=== PATIENT | male | born 1975 | race Caucasian/White ===

== ENCOUNTER 2020-03-28 16:00 | Outpatient (REF) | payer MEDICAID, OTHER, SELFPAY ==
--- NOTE | 2020-03-28 16:13 | XR_ITS ---
EXAMINATION: XR KNEE, RIGHT XR KNEE, LEFT CLINICAL INFORMATION: Pain. COMPARISON: Left knee radiographs dated 07/28/2018. TECHNIQUE: AP, tunnel, lateral, and sunrise views of the right and left knee. FINDINGS: RIGHT KNEE: Mild medial compartment joint space narrowing. Tiny medial and patellofemoral compartment marginal osteophytes. No osseous erosion. No fracture or dislocation. No abnormal soft tissue calcification. LEFT KNEE: Mild medial compartment joint space narrowing. Small medial and patellofemoral compartment marginal osteophytes. Mild patellofemoral subchondral cystic change. No fracture or dislocation. No significant joint effusion. No abnormal soft tissue calcification. XR/XR knee LT 4V IMPRESSION: Right knee: Mild medial and patellofemoral compartment osteoarthritis. Left knee: Mild medial and patellofemoral compartment osteoarthritis, slightly progressed when compared to the prior radiographs.
--- NOTE | 2020-03-28 16:13 | XR_ITS ---
EXAMINATION: XR KNEE, RIGHT XR KNEE, LEFT CLINICAL INFORMATION: Pain. COMPARISON: Left knee radiographs dated 07/28/2018. TECHNIQUE: AP, tunnel, lateral, and sunrise views of the right and left knee. FINDINGS: RIGHT KNEE: Mild medial compartment joint space narrowing. Tiny medial and patellofemoral compartment marginal osteophytes. No osseous erosion. No fracture or dislocation. No abnormal soft tissue calcification. LEFT KNEE: Mild medial compartment joint space narrowing. Small medial and patellofemoral compartment marginal osteophytes. Mild patellofemoral subchondral cystic change. No fracture or dislocation. No significant joint effusion. No abnormal soft tissue calcification. XR/XR knee RT 4V IMPRESSION: Right knee: Mild medial and patellofemoral compartment osteoarthritis. Left knee: Mild medial and patellofemoral compartment osteoarthritis, slightly progressed when compared to the prior radiographs.
== END 2020-03-28 16:01 | disposition home or self-care (01) ==
LOC: HO.XRAY 16:00
PROVIDERS: PCP Nurse Practitioner Family; Visit Provider Nurse Practitioner Family
DX: M17.12 Unilateral primary osteoarthritis, left knee (principal); M25.561 Pain in right knee
CPT/HCPCS: 73564

== ENCOUNTER 2020-10-18 12:34 | Outpatient (REF) | payer MEDICAID, OTHER, SELFPAY ==
--- NOTE | ~2020-10-18 | XR_ITS ---
EXAMINATION: XR KNEE, LEFT CLINICAL INFORMATION: Left knee pain. COMPARISON: Left knee radiographs dated 03/28/2020 TECHNIQUE: Four views of the left knee. FINDINGS: Mild medial compartment joint space narrowing. Tricompartmental marginal osteophytes. No osseous erosion. No fracture or dislocation. Moderate joint effusion. No abnormal soft tissue calcification. XR/XR knee LT 4V IMPRESSION: Tricompartmental osteoarthritis, not significantly changed. Moderate joint effusion, new when compared to the prior examination.
== END 2020-10-18 12:35 | disposition home or self-care (01) ==
LOC: HO.XRAY 12:34
PROVIDERS: Absent Provider Registered Nurse Community Health; PCP Registered Nurse Community Health; Visit Provider Nurse Practitioner Family
DX: M25.562 Pain in left knee (principal)
CPT/HCPCS: 73564

== ENCOUNTER 2022-04-25 08:34 | Outpatient (REF) | payer MEDICAID, OTHER, SELFPAY ==
--- NOTE | ~2022-04-25 | US_ITS ---
EXAMINATION: US ABDOMEN COMPLETE CLINICAL INFORMATION: Elevated liver enzymes. COMPARISON: None TECHNIQUE: Real-imaging of the abdominal viscera. FINDINGS: PANCREAS: Normal. ABDOMINAL AORTA: The proximal, mid, and distal segments are normal in caliber. INFERIOR VENA CAVA: Visualized portions are normal. LIVER: The liver is normal in size. The liver contour is normal. There is mild increased liver echogenicity. No focal hepatic lesion. There is no intrahepatic biliary duct dilatation seen. GALLBLADDER: Normal. The gallbladder is physiologically distended without evidence of stones, sludge, polyps, wall thickening or pericholecystic fluid. COMMON BILE DUCT: Normal in caliber measuring 0.2 cm in diameter. RIGHT KIDNEY: Normal. No hydronephrosis. No renal calculi or focal parenchymal lesions. The kidney measures 11.6 cm in maximum dimension. LEFT KIDNEY: There is an anechoic cyst in midpole measuring 0.9 x 0.9 x 0.9 cm. No hydronephrosis or renal calculi. The kidney measures 12.1 cm in maximum dimension. SPLEEN: Normal. The spleen measures 11.3 cm in maximum dimension. FREE FLUID: None. US/US abdomen complete IMPRESSION: 1. Mild increased liver echogenicity. No focal lesion seen. 2. Small anechoic cyst midpole left kidney. 3. Rest of the abdominal ultrasound is unremarkable.
== END 2022-04-25 08:35 | disposition home or self-care (01) ==
LOC: HO.US 08:34
PROVIDERS: PCP Registered Nurse; Visit Provider Registered Nurse
DX: R74.8 Abnormal levels of other serum enzymes (principal)
CPT/HCPCS: 76700

== ENCOUNTER 2022-11-28 09:23 | Outpatient (REF) | payer MEDICAID, OTHER, SELFPAY | END 2022-11-28 09:24 | disposition home or self-care (01) | LOC: HO.HHCL 09:23 | PROVIDERS: Visit Provider Registered Nurse | DX: E11.69 Type 2 diabetes mellitus with other specified complication (principal); E66.9 Obesity, unspecified | CPT/HCPCS: 36415; 80053; 80061; 82043; 82570 ==

== ENCOUNTER 2023-02-05 09:25 | Outpatient (REF) | payer MEDICAID, OTHER, SELFPAY ==
[2023-02-05 11:33] LABS: MANUAL DIFF FLAG NO
[2023-02-05 11:45] LABS: Basophils Percent Auto 0.5 % (0-2); Eosinophils Absolute Auto 0.1 X10*3/uL (0.0-0.4); Eosinophils Percent Auto 1.4 % (0-4); Hematocrit 43.9 % (42.0-52.0); Hemoglobin 14.5 g/dl (14.0-18.0); Imm Gran Abs Auto 0.01 X10*3/uL (0.00-0.03); Imm Gran Pct Auto 0.2 % (0.0-0.4); Lymphocytes Absolute Auto 2.9 X10*3/uL (1.2-4.9); Lymphocytes Percent Auto 45.2 % (20-40); Mean Corpuscular Hemoglobin 27.7 pg (27.0-33.0); Mean Corpuscular Volume 83.9 fL (80.0-98.0); Mean Platelet Volume 10.9 fL (9.4-12.4); Monocytes Absolute Auto 0.5 X10*3/uL (0.1-1.2); Monocytes Percent Auto 8.1 % (2-11); Neutrophils Absolute Auto 2.8 x10*3/uL (2.0-8.3); Neutrophils Percent Auto 44.6 % (45-73); Platelet Count 206 X10*3/uL (160-400); Red Blood Count 5.23 X10*6/uL (4.60-5.80); Red Cell Distribution Width 13.5 % (11.0-16.0); White Blood Count 6.3 X10*3/uL (4.8-10.8)
[2023-02-05 12:05] LABS: Alanine Aminotransferase 95 U/L (0-40); Albumin Level 4.5 g/dL (3.5-5.0); Alkaline Phosphatase 72 U/L (39-117); Aspartate Amino Transferase 74 U/L (5-37); Bilirubin Direct 0.2 mg/dL (0.0-0.5); Bilirubin Total 0.5 mg/dL (0.0-1.0); Total Protein 7.7 g/dL (6.5-8.0)
[2023-02-05 12:34] LABS: HBsAGNum1 0.23 S/CO (0.00-0.99); Hepatitis A Antibody IgM 0.28 Index (0-0.79); Hepatitis B Core Antibody Nonreactive (Nonreactive); Hepatitis B Surface Antigen Negative (Negative); ~HepC Num1 0.11 S/CO (0.00-0.79); ~Hepatitis A Antibody IgM Nonreactive (Nonreactive); ~Hepatitis B Surface Antibody REACTIVE (Nonreactive); ~Hepatitis C Antibody Nonreactive (Nonreactive)
== END 2023-02-05 09:26 | disposition home or self-care (01) ==
LOC: HO.HHCL 09:25
PROVIDERS: Visit Provider Registered Nurse
DX: R74.8 Abnormal levels of other serum enzymes (principal)
CPT/HCPCS: 36415; 80076; 85025; 86704; 86706; 86709; 86803; 87340

== ENCOUNTER 2023-03-06 18:17 | Emergency (ER) | payer MEDICAID, OTHER, SELFPAY ==
[2023-03-06 18:21] VITALS: BP 151/95; PULSE 103; RESP 20; TEMP 36.2; O2SAT 98; BMI 38.1
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
--- NOTE | 2023-03-06 18:29 | ECG_ITS ---
Test Reason : SYNCOPE Blood Pressure : / mmHG Vent. Rate : 093 BPM Atrial Rate : 093 BPM P-R Int : 170 ms QRS Dur : 094 ms QT Int : 342 ms P-R-T Axes : 059 -25 021 degrees QTc Int : 425 ms Normal sinus rhythm Normal ECG When compared with ECG of 07-JUL-2017 02:59, No significant change was found Referred By: Mara Candelaria Electronically Signed By:ЮЛИЯ ROMERO MD
[2023-03-06 18:44] LABS: MANUAL DIFF FLAG NO
[2023-03-06 18:45] LABS: Basophils Percent Auto 0.3 % (0-2); Eosinophils Absolute Auto 0.1 X10*3/uL (0.0-0.4); Eosinophils Percent Auto 1.4 % (0-4); Hematocrit 40.5 % (42.0-52.0); Hemoglobin 13.3 g/dl (14.0-18.0); Imm Gran Abs Auto 0.02 X10*3/uL (0.00-0.03); Imm Gran Pct Auto 0.3 % (0.0-0.4); Lymphocytes Percent Auto 42.3 % (20-40); Mean Corpuscular HGB Conc 32.8 g/dl (31.0-36.0); Mean Corpuscular Hemoglobin 27.6 pg (27.0-33.0); Mean Platelet Volume 10.1 fL (9.4-12.4); Monocytes Absolute Auto 0.7 X10*3/uL (0.1-1.2); Monocytes Percent Auto 9.4 % (2-11); Neutrophils Absolute Auto 3.3 x10*3/uL (2.0-8.3); Neutrophils Percent Auto 46.3 % (45-73); Platelet Count 181 X10*3/uL (160-400); Red Blood Count 4.82 X10*6/uL (4.60-5.80); Red Cell Distribution Width 14.2 % (11.0-16.0); White Blood Count 7.1 X10*3/uL (4.8-10.8)
[2023-03-06 18:59] LABS: Alanine Aminotransferase 102 U/L (0-40); Albumin Level 4.2 g/dL (3.5-5.0); Alkaline Phosphatase 95 U/L (39-117); Anion Gap 16 (12-20); Aspartate Amino Transferase 57 U/L (5-37); Bilirubin Total 0.2 mg/dL (0.0-1.0); Blood Urea Nitrogen 11 mg/dL (9-16); Carbon Dioxide 21 mmol/L (22-29); Chloride 105 mmol/L (96-108); Creatinine Clr Calc Pharmacy 107.1; Estimated Glomerular Filt Rate > 60; Glucose Random 203 mg/dL (60-115); Potassium 3.7 mmol/L (3.3-5.1); Sodium 138 mmol/L (135-145); Total Protein 7.4 g/dL (6.5-8.0)
[2023-03-06 19:07] LABS: Troponin-I High Sensitivity < 2.7 ng/L (<3.5-35.0)
[2023-03-06 21:06] VITALS: BP 143/97; PULSE 86; RESP 20; TEMP 36.4; O2SAT 98
== END 2023-03-06 21:15 | disposition home or self-care (01) ==
LOC: HO.ED 21:14
PROVIDERS: Nurse Practitioner Family; Emergency Provider Student in an Organized Health Care Education/Training Program
DX: R55 Syncope and collapse (principal)
CPT/HCPCS: 36415; 80053; 84484; 85025; 93005; 99282; 99283

== ENCOUNTER → 2023-03-06 18:29 | Outpatient (BNV) | payer SELFPAY | PROVIDERS: Emergency Provider Student in an Organized Health Care Education/Training Program; Visit Provider Internal Medicine Cardiovascular Disease | DX: R55 Syncope and collapse (principal) | CPT/HCPCS: 93010 ==

== ENCOUNTER 2023-04-10 08:54 | Outpatient (REF) | payer MEDICAID, OTHER, SELFPAY ==
[2023-04-10 11:29] LABS: MANUAL DIFF FLAG NO
[2023-04-10 11:48] LABS: Basophils Percent Auto 0.5 % (0-2); Eosinophils Absolute Auto 0.1 X10*3/uL (0.0-0.4); Eosinophils Percent Auto 1.5 % (0-4); Hematocrit 44.2 % (42.0-52.0); Hemoglobin 14.3 g/dl (14.0-18.0); Imm Gran Abs Auto 0.02 X10*3/uL (0.00-0.03); Imm Gran Pct Auto 0.3 % (0.0-0.4); Lymphocytes Absolute Auto 3.2 X10*3/uL (1.2-4.9); Lymphocytes Percent Auto 51.6 % (20-40); Mean Corpuscular HGB Conc 32.4 g/dl (31.0-36.0); Mean Corpuscular Hemoglobin 27.1 pg (27.0-33.0); Mean Corpuscular Volume 83.9 fL (80.0-98.0); Mean Platelet Volume 10.8 fL (9.4-12.4); Monocytes Absolute Auto 0.5 X10*3/uL (0.1-1.2); Monocytes Percent Auto 8.8 % (2-11); Neutrophils Absolute Auto 2.3 x10*3/uL (2.0-8.3); Neutrophils Percent Auto 37.3 % (45-73); Platelet Count 227 X10*3/uL (160-400); Red Blood Count 5.27 X10*6/uL (4.60-5.80); Red Cell Distribution Width 13.6 % (11.0-16.0); White Blood Count 6.1 X10*3/uL (4.8-10.8)
[2023-04-10 12:03] LABS: Alanine Aminotransferase 107 U/L (0-40); Albumin Level 4.3 g/dL (3.5-5.0); Alkaline Phosphatase 63 U/L (39-117); Aspartate Amino Transferase 59 U/L (5-37); Bilirubin Direct 0.2 mg/dL (0.0-0.5); Bilirubin Total 0.4 mg/dL (0.0-1.0); Cholesterol 231 mg/dL (<200); HDL Cholesterol 46 mg/dL (>40); LDL Cholesterol Calculated 134 mg/dL (<100); Total Protein 7.5 g/dL (6.5-8.0); Triglycerides 256 mg/dL (<150)
[2023-04-10 12:16] LABS: HBc Num1 0.17 S/CO (0.00-0.79); HBsAGNum1 0.56 S/CO (0.00-0.99); Hepatitis A Antibody IgM 0.28 Index (0-0.79); Hepatitis B Core Antibody Nonreactive (Nonreactive); Hepatitis B Surface Antigen Negative (Negative); ~HepC Num1 0.12 S/CO (0.00-0.79); ~Hepatitis A Antibody IgM Nonreactive (Nonreactive); ~Hepatitis B Surface Antibody REACTIVE (Nonreactive); ~Hepatitis C Antibody Nonreactive (Nonreactive)
== END 2023-04-10 08:55 | disposition home or self-care (01) ==
LOC: HO.HHCL 08:54
PROVIDERS: Visit Provider Registered Nurse
DX: R74.8 Abnormal levels of other serum enzymes (principal)
CPT/HCPCS: 36415; 80061; 80076; 85025; 86704; 86706; 86709; 86803; 87340

== ENCOUNTER 2023-10-03 08:21 | Outpatient (REF) | payer MEDICAID, OTHER, SELFPAY ==
[2023-10-03 11:23] LABS: Alanine Aminotransferase 119 U/L (0-40); Albumin Level 4.4 g/dL (3.5-5.0); Alkaline Phosphatase 63 U/L (39-117); Aspartate Amino Transferase 88 U/L (5-37); Bilirubin Direct 0.1 mg/dL (0.0-0.5); Bilirubin Total 0.3 mg/dL (0.0-1.0); Cholesterol 166 mg/dL (<200); HDL Cholesterol 50 mg/dL (>40); LDL Cholesterol Calculated 65 mg/dL (<100); Total Protein 7.4 g/dL (6.5-8.0); Triglycerides 255 mg/dL (<150)
== END 2023-10-03 08:22 | disposition home or self-care (01) ==
LOC: HO.HHCL 08:21
PROVIDERS: Visit Provider Registered Nurse
DX: E78.2 Mixed hyperlipidemia (principal); R74.8 Abnormal levels of other serum enzymes
CPT/HCPCS: 36415; 80061; 80076

== ENCOUNTER 2025-02-10 12:11 | Outpatient (REF) | payer MEDICAID, OTHER, SELFPAY ==
--- OUTSIDE RECORDS SUMMARY | 2025-02-07 14:00 | XMS_ITS | Encounter Summary ---
Author Organization [employer] Address [address] [place] [address] [address] [place] [address] Care Team Providers Care Mr Teacher Name Role Phone [facility] Primary Care Provider [phone] Reason for Visit * Reason Comments Follow-up Encounter Details Date Type Department Care Team ([facility] Contact Info) Description 02/07/2025 2:00 PM EST Office Visit [facility] [address] [place] [address] Geeta Ann FNP [address] [place] [address] Elevated bilirubin Social History Tobacco Use Types Packs/Day Years Used Date Smoking Tobacco: Never Smokeless Tobacco: Never Tobacco Cessation:Counseling Given: Not Answered Alcohol Use Standard Drinks/Week Comments Yes 2 (1 standard drink = 0.6 oz pur e alcohol) Alcohol Answer Date Recorded Frequency of Alcohol Consumption Not on file 04/16/2023 Average Number of Drinks Not on file 024 Frequency of Binge Drinking Not on file 03/28 Score 0 04/16/2023 Depression Answer Date Recorded Patient Health Questionnaire-9 Score 0 12/24/2024 Patient Health Questionnaire-9 Score 0 12/24/2024 Last PHQ-9: Questionnaire Data Not on file 1 Housing Stability Answer Date Recorded What is your housing situation today? I have dexter smith 12/31/[address] you li ve. Do you have problems with any of the following? None of the above 12/31/2023 Food Insecurity Answer Date Recorded Within the past 12 months, y ou worried that your food would run out before you got money to buy more: Never True 12/31/2023 Within the past 12 months,th e food you bought just didn't last and you didn't have enough money to get more: Never True 07/2023 Transportation Answer Date Recorded In the past 12 months, has l ack of transportation kept you from medical appts, meetings, work or from getting things needed for daily living? No 12/31/2023 Utilities Answer Date Recorded In the past 12 months, has t he electric, gas, oil or water company threatened to shut off services in your home? No 12/31/2023 Depression Answer Date Recorded Patient Health Questionnaire-2 Score 0 12/24/2024 Internet Access Answer Date Recorded Internet Access Q1 Yes 12/31/2023 Internet Access Q2 Not on file 12/31/2023 Sex and Gender Information Value Date Recorded Sex Assigned at Male 12/24/2021 10:29 AM EDT Legal Sex Male 10:29 AM EDT Gender Identity Male 12/24/2021 10:29 AM EDT Sexual Orientation Straight 12/24/2021 10 :29 AM EDT documented as of this encounter Last Filed Vital Signs Vital Sign Reading Time Taken Comments Blood Pressure 138/78 02/07/2025 2:29 PM EST Pulse 85 02/07/2025 2:29 PM EST Temperature 36.5 C (97.7 F) 02/07/2025 2:29 PM EST Respiratory Rate 16 02/07/2025 2:29 PM EST Oxygen Saturation 97% 02/07/2025 2:29 PM EST Inhaled Oxygen Concentration - - Weight 108 kg (238 lb) 02/07/2025 2:29 PM EST Height 172.7 cm (5' 8 ) 02/07/2025 2:29 PM EST Body Mass Index 36.19 02/07/2025 2:29 PM EST documented in this encounter Plan of Treatment Upcoming Encounters Date Type Department Care Team (Late st Contact Info) Description 03/09/2025 9:30 AM EST Office Visit [facility] [address] [place] [address] Lorraine Sterling, OD [address] [place] [address] 03/16/2025 10:15 AM EST Office Visit [facility] [address] [place] [address] Antler, Lisa, TRAINING PROFESSIONAL [address] [place] [address] documented as of this encounter Goals Goal Patient Goal Type Associated Problems Recent Progress Patient-Stated? Author Hemoglobin A1c < 7 Result Component 7(12/24/2024 1:28 PM EDT) No Codie Jara, Dileep Help patients manage their type 2 diabetes Care Plan Help patients manage their type 2 diabetes No Anais Leone Weekly blood pressure task Care Plan Weekly blood pressure task No Anais Leone Help patients manage their type 2 diabetes Care Plan Help patients manage their type 2 diabetes No Anais Leone Patient has chronic kidney disease Care Plan Patient has chronic kidney disease No Anais Leone Weekly blood pressure task Care Plan Weekly blood pressure task No Anais Leone Patient has chronic kidney disease Care Plan Patient has chronic kidney disease No Anais Leone Weekly blood pressure task Care Plan Weekly blood pressure task No Silvio Leone [place] Weekly blood pressure task Care Plan Weekly blood pressure task No Silvio Leone [place] Patient has chronic kidney disease Care Plan Patient has chronic kidney disease No Silvio Leone [place] Patient has chronic kidney disease Care Plan Patient has chronic kidney disease No Silvio Leone [place] Weekly blood pressure task Care Plan Weekly blood pressure task No Silvio Leone [place] Weekly blood pressure task Care Plan Weekly blood pressure task No Silvio Leone [place] Patient has chronic kidney disease Care Plan Patient has chronic kidney disease No Silvio Leone [place] Patient has chronic kidney disease Care Plan Patient has chronic kidney disease No Silvio Leone [place] Weekly blood pressure task Care Plan Weekly blood pressure task No Carmen Sinha PharmD Weekly blood pressure task Care Plan Weekly blood pressure task No Carmen Sinha, PharmJuan Carlos Patient has chronic kidney disease Care Plan Patient has chronic kidney disease No Carmen Sinha, PharmJuan Carlos Patient has chronic kidney disease Care Plan Patient has chronic kidney disease No Carmen Sinha, Dileep documented as of this encounter Procedures Procedure Name Priority Date/Time Associated Diagnosis Comments COMPREHENSIVE METABOLIC PANEL Routine 02/10/2025 12:19 PM EST Elevated bilirubin documented in this encounter Results * (ABNORMAL) Comprehensive Metabolic Panel (02/10/2025 12:19 PM EST) Sodium 139 135 - 145 mmol/L [facility] Potassium 4.1 3.3 - 5.1 mmol/L [facility] Chloride 105 96 - 108 mmol/L [facility] Carbon Dioxide 27 22 - 29 mmol/L [facility] Anion Gap 11(L) 12 - 20 [facility] Urea Nitrogen (BUN) 13 9 - 16 mg/dL [facility] Creatinine, Serum 0.99 0.5 - 1.4 mg/dL [facility] Estimated Glomerular Filt Rate >60 [facility] Comment:Chronic Kidney Disea se: Estimated GFR < 60 mL/min/[id number] Kidney Disease: Estimated GFR < 15 mL/min/1.73m2 Glucose 95 60 - 115 mg/dL [facility] Calcium 9.0 8.4 - 10.2 mg/dL [facility] Bilirubin, Total 0.4 0.0 - 1.0 mg/dL [facility] Aspartate Amino Transferase 113(H) 5 - 37 U/L [facility] Alanine Aminotransferase 167(H) 0 - 40 U/L [facility] Total Protein 7.0 6.5 - 8.0 g/dL [facility] Albumin Level 4.5 3.5 - 5.0 g/dL [facility] Alkaline Phosphatase 52 39 - 117 U/L [facility] Blood Venous blood specimen / Unknown 02/10/2025 12:19 PM EST 02/10/2025 2:00 PM EST us Geeta DYKESP LAB BLOOD ORDERABLES Final Res ult [facility] [address] [place] [address] [phone] documented in this encounter Visit Diagnoses Diagnosis Elevated bilirubin documented in this encounter Additional Health Concerns Active Problems Noted Date Diagnosed Date Help patients manage their type 2 diabetes 01/31 Weekly blood pressure task 01/31/2025 Help patients manage their type 2 diabetes 01/31 Patient has chronic kidney disease 01/31/2025 Weekly blood pressure task 01/31/2025 Patient has chronic kidney disease 01/31/2025 Weekly blood pressure task 02/03/2025 Weekly blood pressure task 02/03/2025 Patient has chronic kidney disease 02/03/2025 Patient has chronic kidney disease 02/03/2025 Weekly blood pressure task 02/03/2025 Weekly blood pressure task 02/03/2025 Patient has chronic kidney disease 02/03/2025 Patient has chronic kidney disease 02/03/2025 Weekly blood pressure task 02/04/2025 Weekly blood pressure task 02/04/2025 Patient has chronic kidney disease 02/04/2025 Patient has chronic kidney disease 02/04/2025 Assessment Noted Time PHQ-9 Depression Total Score: 0 12/25/19 25 1:14 PM EDT documented as of this encounter Care Teams Mr Teacher Relationship Specialty Start Date End Date Lisa Todd FNP [address] [place] [id number] PCP - General Family Medicine 10/24/21 documented as of this encounter
[2025-02-10 15:12] LABS: Microalbum/Creatinine Ratio Ur 8.2 ug/mg cr (<30)
[2025-02-10 15:39] LABS: Alanine Aminotransferase 167 U/L (0-40); Albumin Level 4.5 g/dL (3.5-5.0); Alkaline Phosphatase 52 U/L (39-117); Anion Gap 11 (12-20); Aspartate Amino Transferase 113 U/L (5-37); Blood Urea Nitrogen 13 mg/dL (9-16); Calcium 9.0 mg/dL (8.4-10.2); Carbon Dioxide 27 mmol/L (22-29); Chloride 105 mmol/L (96-108); Cholesterol 140 mg/dL (<200); Estimated Glomerular Filt Rate > 60; HDL Cholesterol 37 mg/dL (>40); Potassium 4.1 mmol/L (3.3-5.1); Sodium 139 mmol/L (135-145); Total Protein 7.0 g/dL (6.5-8.0); Triglycerides 143 mg/dL (<150)
--- OUTSIDE RECORDS SUMMARY | 2025-02-10 16:01 | XMS_ITS | Encounter Summary ---
Author Organization [employer] Address [address] [place] [address] Care Team Providers Care Iron Launder Operator Name Role Phone [facility] Primary Care Provider [phone] Reason for Visit * Reason Comments Med Refill Encounter Details Date Type Department Care Team ([facility] st Contact Info) Description 02/18/2023 Refill [facility] [address] [place], [place] [phone] [facility] [address] [place] [address] Social History Tobacco Use Types Packs/Day Years Used Date Smoking Tobacco: Never Smokeless Tobacco: Never Alcohol Use Standard Drinks/Week Comments Yes 2 (1 standard drink = 0.6 oz pur e alcohol) Depression Answer Date Recorded Patient Health Questionnaire-9 Score 0 08/05/2022 Housing Stability Answer Date Recorded What is your housing situation today? I have dexter smith 12/10/[address] you li ve. Do you have problems with any of the following? None of the above 12/10/2022 Food Insecurity Answer Date Recorded Within the past 12 months, y ou worried that your food would run out before you got money to buy more: Never True 12/10/2022 Within the past 12 months,th e food you bought just didn't last and you didn't have enough money to get more: Never True Transportation Answer Date Recorded In the past 12 months, has l ack of transportation kept you from medical appts, meetings, work or from getting things needed for daily living? No 12/10/2022 Utilities Answer Date Recorded In the past 12 months, has t he electric, gas, oil or water company threatened to shut off services in your home? No 12/10/2022 Depression Answer Date Recorded Patient Health Questionnaire-2 Score 0 08/05/2022 Sex and Gender Information Value Date Recorded Sex Assigned at Male 12/24/2021 10:29 AM EDT Legal Sex Male 10:29 AM EDT Gender Identity Male 12/24/2021 10:29 AM EDT Sexual Orientation Straight 12/24/2021 10 :29 AM EDT documented as of this encounter Plan of Treatment Upcoming Encounters Date Type Department Care Team (Late st Contact Info) Description 03/09/2025 9:30 AM EST Office Visit [facility] [address] [place], [place] [id number] Asher, Lorraine, OD [address] [place] [address] 03/16/2025 10:15 AM EST Office Visit [facility] [address] [place] [address] Lisa Todd FNP [address] [place] [address] documented as of this encounter Visit Diagnoses Not on filedocumented in this encounter Additional Health Concerns Assessment Noted Time PHQ-9 Depression Total Score: 0 08/06/19 23 3:15 PM EDT documented as of this encounter Care Teams Iron Launder Operator Relationship Specialty Start Date End Date Lisa Todd FNP [address] [place] [address] PCP - General Family Medicine 10/24/21 documented as of this encounter
--- OUTSIDE RECORDS SUMMARY | 2025-02-10 16:01 | XMS_ITS | Clinical Summary ---
Author Organization [facility] Address [address] [place] [address] Care Team Providers Care Finish Mender Name Role Phone [facility] Primary Care Provider [phone] Allergies No known active allergies Medications lisinopriL (PRINIVIL,ZESTR IL) 40 mg tablet Take 40 mg by mouth daily. 03/09/2020 Active omeprazole (PriLOSEC) 40 mg capsule TAKE 1 CAPSULE BY MOUTH TWICE DAILY BEFORE A MEAL 03/29/2020 Active Fish Oil 340-1,000 mg capsule Take 1,000 mg by mouth daily. 03/01/2020 Active cholecalciferol (VITAMIN D3) 2,000 unit capsule Take 1 capsule by mouth daily. 03/02/2020 Active metFORMIN (GLUCOPHAGE) 500 mg tablet Take 500 mg by mouth 2 times a day with meals. 03/29/2020 Active TRUEplus Lancets lancet 33 gauge TEST BLOOD SUGAR 2 OR 3 TIMES DAILY 04/27/2019 Active Freestyle Lite test strips TEST BLOOD SUGAR 2 OR 3 TIMES DAILY 04/27/2019 Active cetirizine (ZyrTEC) 10 mg tablet Take 10 mg by mouth once a day. 07/04/2021 Active amLODIPine (NORVASC) 5 mg tablet SMARTSI Tablet(s) By Mouth Every Morning Active Alcohol Prep Pads pads, medicated USE DIRECTED TO TEST BLOOD SUGAR THREE TIMES DAILY 04/07/2024 Active aspirin 81 mg EC tablet Take 81 mg by mouth daily. 05/15/2023 Active rosuvastatin (CRESTOR) 10 mg tablet Take 1 tablet by mouth once a day. 03/17/2024 Active Active Problems Problem Noted Date Diagnosed Date Umbilical hernia without obstruction and without gangrene 11/22/2020 Assessment & Plan (11/22/2020 1:10 PM EDT): Today's visit was conducted entirely through shop welder on the iPad Lena Garcia #[id number]. Donnie has developed an asymptomatic very small fat-containing umbilical hernia. There is no indication for surgery at this time. 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 He did note a time where his umbilicus had a little bit of drainage and was itchy. This was likely due to a small infection as there is a fold of skin within the bellybutton. I talked to him about skin hygiene and washing the umbilical area in the shower daily with Dial soap and making sure that it is dried thoroughly after the shower. He can use a hairspring assembler in the cool setting to get an extra dry. He was reassured that there is no indication for surgery at this point. All of his questions were answered and of course he has any questions or concerns in the future would be happy to see him anytime. Thank you for allowing us to participate in his care. Essential hypertension 10/13/2020 Assessment & Plan (07/20/2021 9:31 AM EDT): BP today 142/89 however he did not take his lisinopril this morning. Home readings have been better controlled with readings in the 120-130s/80s. I did not make any changes to his regimen today, he will continue lisinopril 40 mg daily. I asked that he continue monitoring his blood pressure from home and to contact the clinic should he have readings consistently >140/85. Check BMP today. Assessment & Plan (10/13/2020 2:00 PM EDT): Suboptimal at today's visit however he tells me 2 weeks ago at his PCPs office it was well controlled at 129/72. I asked him to start monitoring his blood pressure from home and to contact us should he have consistently elevated readings >140/85. He will otherwise continue lisinopril. I again encouraged him to work on weight loss through diet and regular aerobic exercise. Dyslipidemia 10/13/2020 Assessment & Plan (07/20/2021 9:32 AM EDT): Lipids Latest Ref Rng & Units 01/17/2021 CHOLESTEROL <200 mg/dL 239(H) TRIGLYCERIDES <150 mg/dL 894(H) HDL 40 - 59 mg/dL 40 DIRECT LDL <100 mg/dL 115(H) Continue atorvastatin 80 mg daily. Check lipid panel today. Assessment & Plan (10/13/2020 2:03 PM EDT): Per documentation from PCPs note he has a history of hyperlipidemia/hypertriglyceridemia but I do not see his last lipid panel on file. He takes fish oil but will likely need statin therapy as well. We discussed the importance of diabetes control in terms of lowering his triglycerides. He is going to work on lowering his A1c, losing weight, and we will plan to have his lipids rechecked in a few months. Diabetes mellitus type II, non insulin dependent 10/13/2020 Obesity (BMI 30-39.9) 10/13/2020 Assessment & Plan (10/13/2020 2:01 PM EDT): He unfortunately has not lost any weight since his last visit. Again discussed the importance of weight loss through diet and regular aerobic exercise. We reviewed a carbohydrate controlled cardiac type diet. Sinus tachycardia 10/13/2020 Assessment & Plan (10/13/2020 2:03 PM EDT): HR 103 bpm. Asymptomatic. Continue to monitor. Encounters Date Type Department Care Team Description 01/29/2025 Orders Only [address] [address] Aaron Siegel MD 01/28/2025 Orders Only [facility] [address] [place] [address] Adolfo Epstein MD 01/27/2025 Orders Only [address] [address] Adolfo Epstein MD from Last 3 Months Family History Medical History Relation Name Comments Diabetes Mother Relation Name Status Comments Father Mother Social History Tobacco Use Types Packs/Day Years Used Date Smoking Tobacco: Never Smokeless Tobacco: Never Tobacco Cessation:Counseling Given: Not Answered Alcohol Use Standard Drinks/Week Comments Not Currently 10 (1 standard drink = 0.6 oz pu re alcohol) weekends Sex and Gender Information Value Date Recorded Sex Assigned at Male 04/21/2022 12:12 PM EST Legal Sex Male 9:51 AM EST Gender Identity Male 04/21/2022 12:12 PM EST Sexual Orientation Straight 04/21/2022 12 :12 PM EST Last Filed Vital Signs Vital Sign Reading Time Taken Comments Blood Pressure 120/80 05/05/2024 11:20 AM EDT Pulse 81 05/05/2024 11:20 AM EDT Temperature - - Respiratory Rate 17 05/05/2024 11:20 AM EDT Oxygen Saturation 97% 05/05/2024 11:20 AM EDT Inhaled Oxygen Concentration - - Weight 110.2 kg (243 lb) 05/05/2024 11:20 AM EDT Height 172.7 cm (5' 8 ) 05/05/2024 11:20 AM EDT Body Mass Index 36.95 05/05/2024 11:20 AM EDT Plan of Treatment Upcoming Encounters Date Type Department Care Team (Late st Contact Info) Description 05/18/2025 11:00 AM EDT Follow-Up [facility] Building 4th floor Cardiology Medicine [address] [place] [address] Mold Filling Operator: Rebekah Carrington, Rick Jones MD [address] [place] [address] Health Maintenance Due Date Last Done Comments Cologuard 1973 FOBT / Fit Test 1973 Sigmoidoscopy 1973 Ophthalmology Exam 10/05/1983 Urine Microalbumin 02/14/2023 02/14/2022 Zoster Vaccines (1 of 2) 10/05/2023 Alcohol/Substance Use Screening 02/25/2024 Depression Screening and Follow-Up 02/25/2024 Social Drivers of Health Jessica ual Screening 02/25/2024 Hemoglobin A1C 08/31/2024 03/03/2024, 01/24, 02/13/2022, Additional history exists Influenza Vaccine (#1) 2024 3, 02/13/2022, 02/15/2020, Additional history exists COVID-19 Vaccine (1 - 2024-2 6 season) 2024 Basic Metabolic Panel 01/29/2026 01/29/2025 , 01/28/2025, 01/27/2025, Additional history exists Colon Cancer Screening 07/21/2028 Colonoscopy 07/21/2028 07/21/2018 DTaP,Tdap,and Td Vaccines (2 - Td or Tdap) 02/14/2030 02/15/2020 HIV Screening Completed 02/14/2022, 01/25, 02/08/2020 Pneumococcal Vaccine: 50+ Years Completed 3 Hepatitis B Vaccines Completed 04/25/2022, 03/21/19 23 Hepatitis C Screening Completed 01/28/2025, 022 Procedures * Due to [place] state law, this organization might not be sharing negative HIV tests. Procedure Name Priority Date/Time Associated Diagnosis Comments POCT GLUCOSE Routine 01/29/2025 4:47 PM EST POCT GLUCOSE Routine 01/29/2025 11:35 AM EST POCT GLUCOSE Routine 01/29/2025 8:21 AM EST FERRITIN Routine 01/29/2025 6:01 AM EST TIBC-KAELYN Routine 01/29/2025 6:01 AM EST IRON Routine 01/29/2025 6:01 AM EST COMPREHENSIVE METABOLIC PANEL Routine 01/29/2025 6:01 AM EST POCT GLUCOSE Routine 01/29/2025 5:36 AM EST POCT GLUCOSE Routine 01/29/2025 12:25 AM EST POCT GLUCOSE Routine 01/28/2025 8:42 PM EST POCT GLUCOSE Routine 01/28/2025 4:45 PM EST POCT GLUCOSE Routine 01/28/2025 11:42 AM EST POCT GLUCOSE Routine 01/28/2025 7:30 AM EST HEPATITIS PANEL, ACUTE Routine 7:30 AM EST COMPREHENSIVE METABOLIC PANEL Routine 01/28/2025 6:20 AM EST CBC Routine 01/28/2025 6:20 AM EST POCT GLUCOSE Routine 01/28/2025 1:22 AM EST POCT GLUCOSE Routine 01/27/2025 9:30 PM EST BASIC METABOLIC PANEL Routine 01/27/2025 6:23 PM EST CBC Routine 01/27/2025 6:23 PM EST POCT GLUCOSE Routine 01/27/2025 5:48 PM EST POCT GLUCOSE Routine 01/27/2025 1:41 PM EST POCT GLUCOSE Routine 01/27/2025 10:55 AM EST HEMOGLOBIN A1C Routine 07/20/2021 9:41 AM EDT Dyslipidemia from Last 3 Months or Most Recently Relevant to Health Maintenance Results * Due to [place] state law, this organization might not be sharing negative HIV tests. * POCT Glucose, interfaced (01/29/2025 4:47 PM EST) Only the most recent of14 resultswithin the time period is included. Finger Stick Blood S 104 70 - 106 mg/dL 01/29/2025 4:47 PM EST [facility] 01/29/2025 4:47 PM EST Aaron Siegel MD LAB POCT ORDERABLES - DEVICE Final Result Performing Organization Address [facility] Co de Phone Number [facility] [address] [place] [address], [place] * Total Iron Binding Capacity (01/29/2025 6:01 AM EST) Total Iron Binding Capacity 377 250 - 425 ug/dL 01/29/2025 6:01 AM [facility] 01/29/2025 6:01 AM EST [facility] - 01/29/2025 10:55 AM EST FE,NORMA,TIBC ADDED BY PENDING SALE TO [facility] ON 01/29/25 AT 1034 PER AOT. Adolfo Epstein MD LAB CRITTENDEN GEN Edited Resu lt - Final Performing Organization Address [facility] de Phone Number [facility] [address] [place] [address], [place] * (ABNORMAL) Iron (01/29/2025 6:01 AM EST) Iron 26(L) 65 - 175 ug/dL 01/29/2025 6:01 AM [facility] 01/29/2025 6:01 AM EST [facility] - 01/29/2025 10:55 AM EST FE,NORMA,TIBC ADDED BY PENDING SALE TO [facility] ON 01/29/25 AT 1034 PER AOT. Adolfo Epstein MD LAB BLOOD ORDERABLES Edited Result - Final Performing Organization Address [facility]/ZIP Co de Phone Number [facility] [address] [place] [address], [place] * Ferritin (01/29/2025 6:01 AM EST) Ferritin 42 10 - 307 ng/mL 01/29/2025 6:01 AM [facility] 01/29/2025 6:01 AM EST [facility] - 01/29/2025 10:55 AM EST FE,NORMA,TIBC ADDED BY PENDING SALE TO [facility] ON 01/29/25 AT 1034 PER AOT. us Adolfo Epstein MD LAB BLOOD ORDERABLES Edited Result - Final [facility] [address] [place] [address], [place] * (ABNORMAL) Comprehensive Metabolic Panel (01/29/2025 6:01 AM EST) Only the most recent of2 resultswithin the time period is included. Sodium 140 136 - 145 mmol/L 01/29/2025 6:01 AM [facility] Potassium 4.0 3.5 - 5.1 mmol/L 01/29/2025 6:01 AM [facility] Chloride 101 98 - 107 mmol/L 01/29/2025 6:01 AM [facility] Carbon Dioxide 32(H) 20 - 31 mmol/L 01/29/2025 6:01 AM [facility] Anion Gap 7 5 - 15 mmol/L 01/29/2025 6:01 AM [facility] Glucose Random 99 74 - 106 mg/dL 01/29/2025 6:01 AM [facility] Blood Urea Nitrogen 11 9 - 23 mg/dL 01/29/2025 6:01 AM [facility] Serum Creatinine 1.05 0.70 - 1.30 mg/dL 01/29/2025 6:01 AM [facility] Glomerular Filteration Rate Est 86 >60 01/29/2025 6:01 AM [facility] Comment: Units - mL/min/1.73 msq CKD-EPI Creatinine Equation (2020) used as recommended by The National Kidney Foundation. Start date (04/02/22). Calcium 9.0 8.3 - 10.6 mg/dL 01/29/2025 6:01 AM [facility] Comment: Please Note: New method for Calcium testing live 01/05/2024. New reference range live 01/05/2024. Total Protein 6.6 5.7 - 8.2 g/dL 01/29/2025 6:01 AM [facility] Albumin 4.1 3.2 - 4.8 g/dL 01/29/2025 6:01 AM [facility] Globulin 2.0 2.0 - 3.5 g/dL 01/29/2025 6:01 AM [facility] Alkaline Phosphatase 51 46 - 116 U/L 01/29/2025 6:01 AM [facility] Alanine Aminotransferase 107(H) 10 - 49 U/L 01/29/2025 6:01 AM [facility] Aspartate Amino Transferase 51(H) 13 - 40 U/L 01/29/2025 6:01 AM [facility] Total Bilirubin 0.3 0.3 - 1.2 mg/dL 01/29/2025 6:01 AM [facility] 01/29/2025 6:01 AM [facility] - 01/29/2025 10:55 AM EST FE,NORMA,TIBC ADDED BY PENDING SALE TO [facility] ON 01/29/25 AT 1034 PER AOT. Adolfo Epstein MD LAB BLOOD ORDERABLES Edited Result - Final [facility] [address] [place] [address], * Hepatitis Panel, Acute (01/28/2025 7:30 AM EST) Hep A Ab IgM NonReactive NonReactive 01/28/2025 7:30 AM [facility] Hep B Surface Antigen NonReactive NonReactive 01/28/2025 7:30 AM [facility] Hepatitis B Core Ab IgM Non-Reactive NonReactive 01/28/2025 7:30 AM [facility] Hepatitis C Virus Antibody Non-Reactive NonReactive 01/28/2025 7:30 AM [facility] 01/28/2025 7:30 AM EST [facility] - 01/28/2025 10:02 AM EST ADD ON us Aaron Siegel MD LAB BLOOD ORDERABLES Final Re sult [facility] [address] [place] [address], [place] * (ABNORMAL) CBC (01/28/2025 6:20 AM EST) Only the most recent of2 resultswithin the time period is included. WBC 7.3 4.0 - 11.0 10*3/uL 01/28/2025 6:20 AM [facility] RBC 4.59 4.2 - 6.0 10*6/uL 01/28/2025 6:20 AM [facility] Hemoglobin 11.2(L) 12.0 - 16.0 g/dL 01/28/2025 6:20 AM [facility] Hematocrit 34.8(L) 39.0 - 54.0 % 01/28/2025 6:20 AM [facility] MCV 75.8(L) 80.0 - 96.0 fL 01/28/2025 6:20 AM [facility] MCH 24.4(L) 27.0 - 31.0 pg 01/28/2025 6:20 AM [facility] MCHC 32.2 32.0 - 36.0 g/dL 01/28/2025 6:20 AM [facility] RDW 15.6 12.8 - 18.4 % 01/28/2025 6:20 AM [facility] Platelet Count 188 140 - 400 10*3/uL 01/28/2025 6:20 AM [facility] MPV 10.4 8.0 - 12.0 fL 01/28/2025 6:20 AM [facility] NRBC Pct Auto 0.0 0.0 - 0.2 % 01/28/2025 6:20 AM [facility] NRBC Abs Auto 0.00 0.000 - 0.012 10*3/uL 01/28/2025 6:20 AM [facility] 01/28/2025 6:20 AM EST us Adolfo Epstein MD LAB BLOOD ORDERABLES Final Result [facility] [address] [place] [address], [place] * (ABNORMAL) Basic Metabolic Panel (01/27/2025 6:23 PM EST) Sodium 138 136 - 145 mmol/L 01/27/2025 6:23 PM [facility] Potassium 3.5 3.5 - 5.1 mmol/L 01/27/2025 6:23 PM [facility] Chloride 101 98 - 107 mmol/L 01/27/2025 6:23 PM [facility] Carbon Dioxide 27 20 - 31 mmol/L 01/27/2025 6:23 PM [facility] Anion Gap 10 5 - 15 mmol/L 01/27/2025 6:23 PM [facility] Glucose Random 196(H) 74 - 106 mg/dL 01/27/2025 6:23 PM [facility] Blood Urea Nitrogen 10 9 - 23 mg/dL 01/27/2025 6:23 PM [facility] Serum Creatinine 1.03 0.70 - 1.30 mg/dL 01/27/2025 6:23 PM [facility] Glomerular Filteration Rate Est 88 >60 01/27/2025 6:23 PM [facility] Comment: Units - mL/min/1.73 msq CKD-EPI Creatinine Equation (2020) used as recommended by The National Kidney Foundation. Start date (04/02/22). Calcium 8.6 8.3 - 10.6 mg/dL 01/27/2025 6:23 PM [facility] Comment: Please Note: New method for Calcium testing live 01/05/2024. New reference range live 01/05/2024. 01/27/2025 6:23 PM EST us Adolfo Epstein MD LAB BLOOD ORDERABLES Final Result Performing Organization Address City/[facility]/ZIP Co de Phone Number [facility] [address] [place] [address], [place] * (ABNORMAL) Hemoglobin A1c (07/20/2021 9:41 AM EDT) Hemoglobin A1C 8.4(H) <5.7 % of total Hgb 07/21/2021 4:30 AM EDT [facility] Comment: For someone without known diabetes, a hemoglobin A1c value of 6.5% or greater indicates that they may have diabetes and this should be confirmed with a follow-up test. For someone with known diabetes, a value <7% indicates that their diabetes is well controlled and a value greater than or equal to 7% indicates suboptimal control. A1c targets should be individualized based on duration of diabetes, age, comorbid conditions, and other considerations. Currently, no consensus exists regarding use of hemoglobin A1c for diagnosis of diabetes for children. eAG (MG/DL) 194 mg/dL 07/21/2021 4:30 AM EDT [facility] eAG (MMOL/L) 10.8 mmol/L 07/21/2021 4:30 AM EDT [facility] Blood Structure of peripheral vein / Unknown Venipuncture / Unknown 07/20/2021 9:41 AM EDT 07/20/2021 9:51 AM EDT [facility] DAVID AVILA - 07/21/2021 4:30 AM EDT [facility] Received Date: Deedee SAENZ LAB BLOOD ORDERABLES Final Res ult DAVID AVILA [address] [facility] 3rd Floor, [place] [address], [employer] [facility] [address] [facility] [address] [facility], [place] [address], [place] [phone] from Last 3 Months or Most Recently Relevant to Health Maintenance Insurance [address] [place], [place] [id number] HSNO/FREE CARE Care Teams Finish Mender Relationship Specialty Start Date End Date [facility] [address] [place] [id number] PCP - General 04/24/22
--- OUTSIDE RECORDS SUMMARY | 2025-02-10 16:01 | XMS_ITS | Encounter Summary ---
Author Organization [employer] Address [address] [facility] 7t [place] [address] Care Team Providers Care Technology Applications Consultant Name Role Phone [facility] Primary Care Provider [phone] Encounter Details Date Type Department Care Team (Late st Contact Info) Description 03/12/2024 Orders Only [facility] [address] [place] [address] Provider, MD Morgan Social History Tobacco Use Types Packs/Day Years [...] Date Recorded Patient Health Questionnaire-9 Score 0 03/03/2024 Patient Health Questionnaire-9 Score 0 03/03/2024 Last PHQ-9: Questionnaire Data Not on file 0 03/03/2024 Housing Stability Answer Date Recorded What is [...] Date Recorded Patient Health Questionnaire-2 Score 0 03/03/2024 Internet Access Answer Date Recorded Internet Access [...] Description 03/09/2025 9:30 AM EST Office Visit [facility] [address] [place] [address] Asher, Lorraine, OD [address] [place] [address] 03/16/2025 10:15 AM EST Office Visit [facility] [address] [place] [address] Banks, Lisa, COVER ASSEMBLER [address] [place] [address] documented as of this encounter Goals Goal Patient Goal Type Associated Problems Recent Progress Patient-Stated? Author Hemoglobin A1c < 7 Result Component 7(12/24/2024 1:28 PM EDT) No Codie Jara, Dileep documented as of this encounter Procedures Procedure Name Priority Date/Time Associated Diagnosis Comments COLONOSCOPY Routine 07/21/2018 11:16 AM EDT documented in this encounter Results * Colonoscopy (07/21/2018 11:16 AM EDT) Anatomical Region Laterality Modality Endoscopy us Historical Provider ENDOSCOPY PROCEDURE ORDER FRANCI Final Result documented in this encounter Visit Diagnoses Not on filedocumented in this encounter Additional Health Concerns Assessment Noted Time PHQ-9 Depression Total Score: 0 03/03/19 25 9:14 AM EST documented as of this encounter Care Teams Technology Applications Consultant Relationship Specialty Start Date End Date Lisa Todd FNP [address] [place] [address] PCP - General Family Medicine 10/24/21 documented as of this encounter
--- OUTSIDE RECORDS SUMMARY | 2025-02-10 16:01 | XMS_ITS | Encounter Summary ---
Author Organization [employer] Address [address] [facility] [address] [address] [place] [address] Care Team Providers Care Soil Science Technical Officer Name Role Phone [facility] Primary Care Provider [phone] Encounter Details Date Type Department Care Team (Latest Contact Info) Description 02/07/2025 Travel Social History Tobacco Use Types Packs/Day Years [...] Description 03/09/2025 9:30 AM EST Office Visit [facility] [address] [place] [address] Asher, Lorraine, OD [address] [place] [address] 03/16/2025 10:15 AM EST Office Visit [facility] [address] [place] [address] Peyton, Lisa, TANK WELDER [address] [place] [address] documented as of this encounter Goals Goal Patient Goal Type Associated Problems Recent Progress Patient-Stated? Author Hemoglobin A1c < 7 Result Component 7(12/24/2024 1:28 PM EDT) No Codie Jara, PharmJuan Carlos Help patients manage their type 2 diabetes [...] blood pressure task No Carmen Sinha PharmD Patient has chronic kidney disease Care Plan Patient has chronic kidney disease No Carmen Sinha PharmD Patient has chronic kidney disease Care Plan Patient has chronic kidney disease No Carmen Sinha PharmD documented as of this encounter Visit Diagnoses Not on filedocumented in this encounter Additional Health Concerns Active [...] documented as of this encounter Care Teams Soil Science Technical Officer Relationship Specialty Start Date End Date Lisa Todd FNP [address] [place] [address] PCP - General Family Medicine 10/24/21 documented as of this encounter
--- OUTSIDE RECORDS SUMMARY | 2025-02-10 16:01 | XMS_ITS | Clinical Summary ---
Author Organization [employer] [facility] it[facility] Address [address] [place] [address] Care Team Providers Care Clinical Systems Analyst Name Role Phone Unavailable Primary Care Provider Unavailabl e Social History Tobacco Use Types Packs/Day Years Used Date Smoking Tobacco: Never Assessed Sex and Gender Information Value Date Recorded Sex Assigned at Not on file Legal Sex Male 8:26 PM EDT Gender Identity Not on file Sexual Orientation Not on file Plan of Treatment Health Maintenance Due Date Last Done Comments DTaP,Tdap,and Td Vaccines (1 - Tdap) 1992 Hepatitis B Vaccines (1 of 3 - 19+ 3-dose series) 1992 Pneumococcal Vaccine: 50+ Ye ars (1 of 1 - PCV) 10/05/2023 Zoster Vaccines (1 of 2) 10/05/2023 Depression Screening 02/25/2024 COVID-19 Vaccine (1 - 2024-2 6 season) 2024 Influenza Vaccine (#1) 2024 RSV Immunization Adult Patie nts (1 - 1-dose 75+ series) 2048 HIB Vaccines Aged Out No longer eligi ble based on patient's age to complete this topic HPV Vaccines Aged Out No longer eligi ble based on patient's age to complete this topic Hepatitis A Vaccines Aged Out No long er eligible based on patient's age to complete this topic IPV Vaccines Aged Out No longer eligi ble based on patient's age to complete this topic MMR Vaccines Aged Out No longer eligi ble based on patient's age to complete this topic Meningococcal ACWY Vaccine Aged Out N o longer eligible based on patient's age to complete this topic Meningococcal B Vaccine Aged Out No l onger eligible based on patient's age to complete this topic RSV Immunization Patients Un ivonne 20 months Aged Out No longer eligible b ased on patient's age to complete this topic Varicella Vaccines Aged Out No longer eligible based on patient's age to complete this topic
--- OUTSIDE RECORDS SUMMARY | 2025-02-10 16:01 | XMS_ITS | Encounter Summary ---
Author Organization [employer] Address [address] [place] [address] [address] [place] [address] Care Team Providers Care [employer] Teacher Name Role Phone [place] [facility] Primary Care Provider [phone] Reason for Visit * Reason Comments Med Refill Encounter Details Date Type Department Care Team (Late st Contact Info) Description 05/17/2022 Refill [facility] [address] [place] [address] [facility] [address] [place] [address] Hypertriglyceridemia Social History Tobacco Use Types Packs/Day Years Used Date Smoking Tobacco: Never Smokeless Tobacco: Never Alcohol Use Standard Drinks/Week Comments Yes 2 (1 standard drink = 0.6 oz pur e alcohol) Sex and Gender Information Value Date Recorded Sex Assigned at Male 12/24/2021 10:29 AM EDT Legal Sex Male 10:29 AM EDT Gender Identity Male 12/24/2021 10:29 AM EDT Sexual Orientation Straight 12/24/2021 10 :29 AM EDT COVID-19 Exposure Response Date Recorded In the last 10 days, have yo u been in contact with someone who was confirmed or suspected to have Coronavirus/COVID-19? No / Unsure 05/01/2022 10:42 AM EST documented as of this encounter Plan of Treatment Upcoming Encounters Date Type Department Care Team (Late st Contact Info) Description 03/09/2025 9:30 AM EST Office Visit [facility] [address] [place] [address] Lorraine Sterling, OD [address] [place] [address] 03/16/2025 10:15 AM EST Office Visit [facility] [address] [place] [address] Lisa Todd FNP [address] [place] [address] documented as of this encounter Visit Diagnoses Diagnosis Hypertriglyceridemia Pure hyperglyceridemia documented in this encounter Additional Health Concerns Assessment Noted Time PHQ-9 Depression Total Score: 0 05/03/19 23 9:08 AM EST documented as of this encounter Care Teams [employer] Teacher Relationship Specialty Start Date End Date Lisa Todd FNP [address] [place] [address] PCP - General Family Medicine 10/24/21 documented as of this encounter
--- OUTSIDE RECORDS SUMMARY | 2025-02-10 16:02 | XMS_ITS | Encounter Summary ---
Author Organization [employer] Address [address] [place] [address] [address] [place] [address] Care Team Providers Care Women'S Apparel Salesperson Name Role Phone Lisa Todd Primary Care Provider [phone] Encounter Details Date Type Department Care Team (Latest Contact Info) Description 01/23/2021 Abstract [facility] Dental, Provider, DDS Social History Tobacco Use Types Packs/Day Years [...] Description 03/09/2025 9:30 AM EST Office Visit [facility] [address] [place] [address] Lorraine Sterling, OD [address] [place] [address] 03/16/2025 10:15 AM EST Office Visit [facility] [address] [place] [address] Lisa Todd FNP [address] [place] [address] documented as of this encounter Visit Diagnoses Not on filedocumented in this encounter Care Teams Women'S Apparel Salesperson Relationship Specialty Start Date End Date Lisa Todd FNP [address] [place] [address] PCP - General Family Medicine 10/24/21 documented as of this encounter
--- OUTSIDE RECORDS SUMMARY | 2025-02-10 16:02 | XMS_ITS | Clinical Summary ---
Author Organization [employer] Address [address] [facility] [address] [place] [address] Care Team Providers Care Feed Adviser Name Role Phone Lisa Todd [facility] Primary Care Provider [phone] Allergies No known active allergies Medications fluticasone (Flonase) 50 MCG/ACT nasal spray Administer 2 sprays into affected nostril(s) at bed time. 022 Active Blood Glucose Monitoring Suppl (FreeStyle Lite) w/Device kitIndications:El evated blood sugar 1 each by Other route in the morning, at noon, and at bedtime. Test blood sugar 2 or 3 times daily 1 kit 022 Active Blood Pressure Monitoring (Omron 3 Series BP Monitor) deviceIndications :Benign essential hypertension USE TO CHECK BLOOD PRESSURE DIRECTED 1 each 024 Active cetirizine (ZyrTEC) 10 MG tabletIndications :Allergy, initial encounter TAKE 1 TABLET BY MOUTH EVERY MORNING 90 tablet 3 5 11:46 AM EST 025 Active lisinopril 40 MG tabletIndications :Gastro-esophagea l reflux disease without esophagitis TAKE 1 TABLET BY MOUTH EVERYDAY AT NOON 90 tablet 3 025 Active Alcohol Swabs (Alcohol Prep) 70 % pads USE DIRECTED TO TEST BLOOD SUGAR THREE TIMES DAILY 100 each 11 025 Active D3 Super Strength 50 MCG (1999) capsuleIndication s:Vitamin D deficiency TAKE 1 CAPSULE BY MOUTH EVERYDAY AT NOON 90 capsule 3 025 Active TRUEplus Lancets 33G misc TEST BLOOD SUGAR THREE TIMES DAILY 100 each 11 5 11:46 AM EST 025 Active FREESTYLE LITE test strip TEST BLOOD SUGAR THREE TIMES DAILY 100 strip 11 5 11:46 AM EST 025 Active Aspirin EC Adult Low Dose 81 MG EC tablet TAKE 1 TABLET BY MOUTH EVERY MORNING 30 tablet 11 025 Active Jardiance 10 MGIndications:Typ e 2 diabetes mellitus with other specified complication (HCC) TAKE 1 TABLET BY MOUTH EVERY MORNING 30 tablet 7 025 Active omega-3 acid ethyl esters (Lovaza) 1 g capsuleIndication s:Hypertriglyceri demia TAKE 2 CAPSULES BY MOUTH TWICE DAILY IN THE MORNING AND EVENING 360 capsule 1 025 Active rosuvastatin (Crestor) 10 MG tabletIndications :Mixed hyperlipidemia TAKE 1 TABLET BY MOUTH EVERY MORNING 90 tablet 1 5 11:46 AM EST 025 Active omeprazole (PriLOSEC) [address] capsuleIndication s:Gastro-esophage al reflux disease without esophagitis TAKE 1 CAPSULE BY MOUTH TWICE DAILY IN THE MORNING AND AT BEDTIME 180 capsule 1 025 Active linaGLIPtin (Tradjenta) 5 MG tabletIndications :Type 2 diabetes mellitus in patient with obesity (HCC) Take 1 tablet (5 mg) by mouth Once per day. 30 tablet 11 5 11:46 AM EST 025 2025 Active amLODIPine (Norvasc) 5 MG tabletIndications :Benign essential hypertension TAKE 1 TABLET BY MOUTH EVERY MORNING 90 tablet 1 025 Active metFORMIN (Glucophage) 500 MG tabletIndications :Type 2 diabetes mellitus with other specified complication (HCC) TAKE 2 TABLETS BY MOUTH TWICE DAILY IN THE MORNING AND EVENING 360 tablet 3 025 Active docusate sodium (Colace) 100 MG capsule Take 1 capsule by mouth if needed each day for constipation. 025 Active Ferrous Sulfate (iron) 325 (65 Fe) MG tablet Take 1 tablet by mouth every other day. 025 Active hydrOXYzine HCl (Atarax) 25 MG tabletIndications :Insomnia, unspecified type Take 1 tablet (25 mg) by mouth if needed at bedtime for anxiety or itching. 120 tablet 2 023 2024 Discontinued(M ed list cleanup (will not trigger notification to Pharmacy)) metFORMIN (Glucophage) 500 MG tablet TAKE 2 TABLETS BY MOUTH TWICE DAILY IN THE MORNING AND EVENING 360 tablet 3 024 2024 Discontinued amLODIPine (Norvasc) 5 MG tabletIndications :Benign essential hypertension TAKE 1 TABLET BY MOUTH EVERY MORNING 90 tablet 1 025 2024 Discontinued Active Problems Problem Noted Date Diagnosed Date Partial edentulism 10/20/2023 Mixed hyperlipidemia 04/20/2023 Overview (04/20/2023): Will trial rosuvastatin at lower dose Repeat FLP at follow up Dental calculus 04/17/2023 NAFLD (nonalcoholic fatty liver disease) 023 Overview (05/05/2022): 04/25/22-Abd ultrasound w/ mild increased liver echogenecity Normal oral exam 04/07/2022 Overview (04/07/2022): C-Scope: ?2019, records not in chart PSA: 0.22 01/2022 HCV Screen: negative 01/2022 HIV Screen: negative 01/2022 Assessment & Plan (08/15/2022 4:44 PM EDT): Will request colonoscopy records Declines COVID vaccine Elevated liver enzymes 04/04/2022 Overview (08/15/2022): 01/2022-ALT 72; AST 44 04/25/22-Abd ultrasound w/ mild increased liver echogenecity Likely s/t heavy alcohol use and NAFLD Assessment & Plan (02/19/2023 1:40 PM EST): Repeat hepatic panel ordered Hepatitis screen ordered Continue to hold terbinafine pending updated results Assessment & Plan (08/15/2022 4:41 PM EDT): Repeat hepatic panel ordered Will continue to monitor Assessment & Plan (04/07/2022 11:16 PM EST): Suspected fatty liver. Patient otherwise asx Negative hepatitis panel Hx of heavy alcohol use-pt reports he is trying to decrease intake. Declines to support services Will obtain ultrasound and continue to monitor live enzymes Vitamin D deficiency 01/23/2022 Type 2 diabetes mellitus in patient with obesity 07/28/2018 Overview (10/03/2023): Metformin 1000mg b.i.d Jardiance 10mg daily Porsha Working with [facility] Nutrition Maintenance: Foot Exam: Risk: 0 Eye Exam:UTD ASCVD: 4.8% Statin: Yes ASA: No JAY/ARB: Yes Encouraged regular aerobic exercise for improved glycemic control Encouraged daily foot checks Encouraged lean protein snacks and to avoid foods high in sugar and simple carbohydrates Treatment Goals: A1c goal: <7% FBG goal: <130 2 hour post prandial goal: <180 Assessment & Plan (04/20/2023 9:38 PM EST): Lab Results Component Value Date HGBA1C 7.2 (A) 02/05/2023 A1c improving Continue current regimen Referral for routine eye exam placed Assessment & Plan (03/19/2023 4:31 PM EST): Lab Results Component Value Date HGBA1C 7.2 (A) 02/05/2023 Shared decision making with patients r treatment options. Will START trulicity 0.75mg weekly for weight loss which will also benefit JHON Reviewed administration, risks, side effects Assessment & Plan (02/19/2023 1:39 PM EST): Lab Results Component Value Date HGBA1C 7.2 (A) 02/05/2023 Mild increase in A1c from last visit. Pt reports dietary lapses. Will focus on diet/exercise Continue current regimen Routine labs ordered Assessment & Plan (11/04/2022 10:00 AM EDT): Lab Results Component Value Date HGBA1C 6.9 (A) 11/04/2022 Significant improvement Continue current regimen Assessment & Plan (08/15/2022 4:40 PM EDT): Lab Results Component Value Date HGBA1C 8.3 (A) 08/05/2022 START jardiance 10mg once daily. Reviewed administration, risks, side effects Continue metformin Assessment & Plan (05/05/2022 2:47 PM EDT): Lab Results Component Value Date HGBA1C 7.1 (A) 05/02/2022 Congratulated patient on significant improvement in A1c Continue current regimen Assessment & Plan (04/07/2022 11:10 PM EST): Lab Results Component Value Date HGBA1C 9.5 (A) 02/13/2022 Recommended starting GLP-1 and discussed risk of untreated hyperglycemia. Pt declines at this time. Prefers to continue lifestyle recommendations. Agrees to GLP-1 start if no A1c improvement at follow up Assessment & Plan (02/20/2022 5:32 PM EST): Current A1c: 9.5; decreased from 10.8 at end of Dec. BMP: Ordered today Microalbumin: Ordered today Foot Exam: Complete at follow up Eye Exam: Discuss at follow up Lipid panel: Ordered today ASCVD: Calculate pending updated labs Statin: Yes ASA: No JAY/ARB: No Encouraged regular aerobic exercise for improved glycemic control Encouraged daily foot checks Encouraged lean protein snacks and to avoid foods high in sugar and simple carbohydrates Treatment Goals: A1c goal: <7% FBG goal: <130 2 hour post prandial goal: <180 Gastroesophageal reflux disease without esophagi tis 02/09/2018 Hypertriglyceridemia 08/26/2017 Obstructive sleep apnea syndrome 12/18/2015 Overview (04/07/2022): CPAP not covered by insurance Assessment & Plan (03/19/2023 4:34 PM EST): - Discussed weight loss and elevating head of bed Benign essential hypertension 11/20/2015 Overview (04/20/2023): Amlodipine 5mg Lisinopril 40mg Maintenance: ASCVD Risk: 4.8% - Aerobic exercise to reduce BP. Initial goal of 30 min walk 3-5x/week. Increase as tolerated. - low-sodium diet (goal: <2g/day) and heart healthy diet such as DASH to reduce BP and prevent ASCVD. - Home BP monitoring 1-2 x day with goal of <140/90. - Seek immediate medical attention for chest pain, palpitations, SOB, syncope, or sudden changes in mental status. - Do not change or discontinue current prescriptions without first consulting health care provider Assessment & Plan (04/20/2023 9:36 PM EST): Well controlled Continue current regimen Assessment & Plan (03/19/2023 4:28 PM EST): Bp with mild elevation in office Home readings well controlled Continue to monitor Focus on low salt diet and increased exercise Assessment & Plan (02/19/2023 1:38 PM EST): Well controlled Continue current regimen Assessment & Plan (11/04/2022 10:00 AM EDT): BP slightly elevated a last 3 office visits INCREASE amlodipine to 5mg daily Continue to monitor home BP readings. Assessment & Plan (08/15/2022 4:38 PM EDT): Continue current regimen Repeat lipid panel pending Assessment & Plan (05/05/2022 2:47 PM EDT): Well controlled Continue current regimen New BP kit sent to pharmacy Assessment & Plan (02/20/2022 5:35 PM EST): Start amlodipine 2.5mg daily Continue lisinopril 40mg daily RN BP check 2 weeks with repeat BMP Maintenance: BMP: Ordered today Lipid Panel: Ordered today ASCVD Risk: Calculate pending updated labs EKG: Obtain baseline at f/u - Aerobic exercise to reduce BP. Initial goal of 30 min walk 3-5x/week. Increase as tolerated. - low-sodium diet (goal: <2g/day) and heart healthy diet such as DASH to reduce BP and prevent ASCVD. - Home BP monitoring 1-2 x day with goal of <140/90. - Seek immediate medical attention for chest pain, palpitations, SOB, syncope, or sudden changes in mental status. - Do not change or discontinue current prescriptions without first consulting health care provider History: previously seen by cardiology in [place] (last visit 06/2021) for shortness of breath with negative work up Resolved Problems Problem Noted Date Diagnosed Date Resolved Date Periodontal disease 01/29/2022 02/21/20 Gingival recession, localized 01/29/2022 02/20/2022 Knee pain 01/23/2022 02/20/2022 Primary osteoarthritis of left knee 01/23/2022 02/20/2022 Headache 07/22/2017 02/20/2022 Hyperinsulinism 09/09/2016 02/20/2022 Encounters Date Type Department Care Team Description 02/07/2025 2:00 PM EST Office Visit [facility] MEDICINE [address] [place] [address] Geeta Ann FNP Elevated bilirubin 02/07/2025 Travel 02/03/2025 Telephone [facility] [address] [place] [address] Lisa Todd FNP Chart Prep 02/03/2025 Refill [facility] [address] [place] [address] Lisa Todd FNP Benign essential hypertension; Type 2 diabetes mellitus with other specified complication (HCC) 01/31/2025 Patient Outreach [facility] [address], [place] [phone] Lisa Todd FNP Transition Of Care (Tcm) (HDF scheduled. ) 12/27/2024 Telephone [facility] [address] [place] [address] Lisa Todd FNP Call Back Request 12/24/2024 1:00 PM EDT Office Visit [facility] [address] [place] [address] Lisa Todd FNP Type 2 diabetes mellitus in patient with obesity (HCC) (Primary Dx); Benign essential hypertension; Rectal lesion 12/24/2024 Travel 12/08/2024 Refill [facility] [address] [place] [address] Lisa Todd FNP Gastro-esophageal reflux disease without esophagitis 11/15/2024 Telephone [facility] [address] [place] [address] Lisa Todd FNP chart prep from Last 3 Months Immunizations Immunization Administration Dates Next Due HepB-CpG 04/25/2022,03/21/2022 Influenza injectable quadriv alent IIV4 with preservative 11/20/2015 Influenza injectable quadrivalent preservative f ree 02/15/2020,03/09/2015 Influenza, seasonal, injectable, preservative fr ee 11/04/2022,02/13/2022 Pneumococcal Conjugate PCV 20 03/21/2022 Tdap 02/15/2020 Family History Medical History Relation Name Comments Diabetes Mother Relation Name Status Comments Mother Social History Tobacco Use Types Packs/Day [...] Orientation Straight 12/24/2021 10 :29 AM EDT Last Filed Vital Signs Vital Sign Reading [...] Mass Index 36.19 02/07/2025 2:29 PM EST Plan of Treatment Upcoming Encounters Date Type Department Care Team (Late st Contact Info) Description 03/09/2025 9:30 AM EST Office Visit [facility] OPTOMETRY [address] [place] [address] Asher, Lorraine, OD [address] [place] [address] 03/16/2025 10:15 AM EST Office Visit [facility] MEDICINE [address] [place] [address] [place], [place], [employer] [address] [place] [address] Health Maintenance Due Date Last Done Comments CT Colonography 1973 FIT DNA/Cologuard 1973 FIT 1973 FOBT 1973 Sigmoidoscopy 1973 Alcohol/Substance Use Screening 1985 Family Planning (PISQ) 1988 Hepatitis A Vaccines (1 of 2 - Risk 2-dose series) 1992 Dental Oral Exam 07/31/2022 01/29/2022 Colonoscopy 07/22/2023 07/21/2018 Colorectal Cancer Screening 07/22/2023 RSV Patients and Patients Aged 60 years or older (1 - Risk 50-74 years 1-dose series) 10/05/2023 Zoster Vaccines (1 of 2) 10/05/2023 Dental X-Ray: Full Mouth 01/25/2024 01/23/2021 Dental Prophylaxis 04/22/2024 10/20/2023, 0 04/17/2023, 01/29/2022 Lipid Panel 10/02/2024 02/10/2025, 08/0 10/2023, 04/10/2023, Additional history exists Dental X-Ray: Bitewings 10/20/2024 10/20/19 24, 04/17/2023, 01/29/2022 COVID-19 Vaccine ( season) 2024 Diabetes: Foot Exam 03/03/2025 03/03/2024, 03/03/2024, 03/03/2024, Additional history exists Diabetes: Hemoglobin A1C 03/26/2025 025, 03/03/2024, 10/03/2023, Additional history exists SDOH Screening 05/25/2025 05/25/2024 Eye Exam 07/24/2025 07/25/2023, 06/26, 07/25/2023, Additional history exists Influenza Vaccine (#1) 2025 , 02/13/2022, 02/15/2020, Additional history exists Postponed from 10/25/2024 (Patient Refused) Depression Screening 12/24/2025 12/24/2024, 12/25/19 25 Disability Screening 02/07/2026 02/07/2025 Tobacco Screening 02/07/2026 02/07/2025 Diabetes: Urine Protein Screening 02/10/2026 02/10/2025, 11/28/2022, 02/14/2022, Additional history exists DTaP/Tdap/Td Vaccines (2 - Td or Tdap) 02/14/2030 02/15/2020 HIV Screening Completed 02/14/2022, 02/08/2020 Pneumococcal Vaccine: 50+ Years Completed 03/21/2022 Hepatitis B Vaccines Completed 04/25/2022, 03/21/19 Hepatitis C Screening Completed 04/10/2023 , 02/05/2023, 02/14/2022, Additional history exists HIB Vaccines Aged Out No longer eligi [...] patient's age to complete this topic Meningococcal Vaccine Aged Out No avery artem eligible based on patient's age to complete this topic RSV under 20 months Aged Out No longe r eligible based on patient's age to complete this topic Rotavirus Vaccines Aged Out No longer eligible based on patient's age to complete this topic Goals Goal Patient Goal Type Associated Problems Recent Progress Patient-Stated? Author Hemoglobin A1c < 7 Result Component 7(12/24/2024 1:28 PM EDT) No Codie Jara, PharmD Help patients manage their type 2 diabetes [...] chronic kidney disease No Carmen Sinha PharmD Procedures Procedure Name Priority Date/Time Associated Diagnosis Comments COMPREHENSIVE METABOLIC PANEL Routine 02/10/2025 12:19 PM EST Elevated bilirubin LIPID PANEL, STANDARD Routine 02/10/2025 12:19 PM EST Type 2 diabetes mellitus with obesity ALBUMIN, RANDOM URINE W/CREATININE Routine 02/10/2025 12:19 PM EST Type 2 diabetes mellitus with obesity POCT GLUCOSE Routine 12/24/2024 1:29 PM EDT Type 2 diabetes mellitus in patient with obesity (HCC) POCT GLYCATED HEMOGLOBIN, TOTAL Routine 12/24/2024 1:28 PM EDT Type 2 diabetes mellitus in patient with obesity (HCC) PROPHYLAXIS - ADULT Routine 10/20/2023 1 0:00 AM EDT BITEWINGS - 4 RADIOGRAPHIC IMAGES Routine 10/20/2023 10:00 AM EDT HEPATITIS PANEL, GENERAL Routine 04/10/2023 8:58 AM EST HIV 1/2 ANTIGEN/ANTIBODY, FOURTH GENERATION W/RFL Routine 02/14/2022 8:22 AM EST Healthcare maintenance PERIODIC ORAL EVALUATION - ESTABLISHED PATIENT Routine 01/29/2022 1:00 PM EST COLONOSCOPY Routine 07/21/2018 11:16 AM EDT from Last 3 Months or Most Recently Relevant to Health Maintenance Results * Albumin, Random Urine W/Creatinine (02/10/2025 12:19 PM EST) Creatinine, Urine 84.56 mg/dL [facility] Microalbumin Urine 7.0 mg/L [facility] Microalbum Creatinine Ratio Ur 8.2 <30 ug/mg cr [facility] Comment:Albumin/Creatinine R atio Reference Ranges: Normal: < 30 ug/mg creatinine Microalbuminuria: 30 - 300 ug/mg creatinineClinical Albuminuria: > 300 ug/mg creatinine Urine 02/10/2025 12:1 9 PM EST 02/10/2025 2:14 PM EST [facility] URINE ORDERABLES Final Re sult Performing Organization Address [facility] de Phone Number [facility] [address] [place] [phone] * (ABNORMAL) Lipid Panel, Standard (02/10/2025 12:19 PM EST) Triglycerides 143 <150 mg/dL [facility] Comment:Desirable Triglyceri de: less than 150 mg/dLBorderline High Triglyceride 150-199 mg/dLHigh Triglyceride: 200-499 mg/dLVery High Triglyceride: greater than or equal to 5OO mg/dL Cholesterol 140 <200 mg/dL [facility] Comment:Desirable Cholestero l: less than 200 mg/dLBorderline High Cholesterol: 200-239 mg/dLHigh Cholesterol: greater than 239 mg/dL LDL Cholesterol Calculated 75 <100 mg/dL [facility] Comment:Desirable LDL: less than 100 mg/dLNear Optimal/Above Optimal LDL: 110- 129 mg/dLBorderline High LDL: 130-159 mg/dLHigh LDL: 160-189 mg/dLVery High LDL: greater than or equal to 190 mg/dL HDL Cholesterol 37(L) >40 mg/dL [facility] Comment:Desirable HDL: great er than 40 mg/dL Note: This HDL assay may give artificially low results in patients with liver disease. Blood Venous blood specimen / Unknown 02/10/2025 12:19 PM EST 02/10/2025 2:00 PM EST [facility] LAB BLOOD ORDERABLES Final Re sult Performing Organization Address [facility]/ZIP Co de Phone Number [facility] [address] [place] [phone] [phone] * (ABNORMAL) Comprehensive Metabolic Panel (02/10/2025 12:19 PM EST) Sodium 139 135 - 145 mmol/L [facility] Potassium 4.1 3.3 - 5.1 mmol/L [facility] Chloride 105 96 - 108 mmol/L [facility] Carbon Dioxide 27 22 - 29 mmol/L [facility] Anion Gap 11(L) 12 - 20 [facility] Urea Nitrogen (BUN) 13 9 - 16 mg/dL [facility] Creatinine, Serum 0.99 0.5 - 1.4 mg/dL [facility] Estimated Glomerular Filt Rate >60 [facility] Comment:Chronic Kidney Disea se: Estimated GFR < 60 mL/min/1.89s2Msjclg Kidney Disease: Estimated GFR < 15 mL/min/1.73m2 Glucose 95 60 - 115 mg/dL [facility] Calcium 9.0 8.4 - 10.2 mg/dL [facility] Bilirubin, Total 0.4 0.0 - 1.0 mg/dL [facility] Aspartate Amino Transferase 113(H) 5 - 37 U/L [facility] Alanine Aminotransferase 167(H) 0 - 40 U/L [facility] Total Protein 7.0 6.5 - 8.0 g/dL [facility] Albumin Level 4.5 3.5 - 5.0 g/dL [facility] Alkaline Phosphatase 52 39 - 117 U/L [facility] Blood Venous blood specimen / Unknown 02/10/2025 12:19 PM EST 02/10/2025 2:00 PM EST us Geeta Ann [employer] LAB BLOOD ORDERABLES Final Res ult [facility] [address] [place] [phone] * POCT Glucose (12/24/2024 1:29 PM EDT) Pathologist [facility] Glucose Blood, POC 125 60 - 200 mg/dL Blood Capillary blood specimen / Unknown 12/24/2024 1:29 PM EDT [facility] POINT OF CARE TEST ENTER/EDIT ORDERABLES Final Result * (ABNORMAL) POCT Hgb A1c (12/24/2024 1:28 PM EDT) [facility] Hemoglobin A1C 7.0(A) 4.0 - 5.7 % Blood 12/24/2024 1:28 PM EDT Result [facility] POINT OF CARE TEST ENTER/EDIT ORDERABLES Final Result * Hepatitis Panel, General (04/10/2023 8:58 AM EST) [facility] Hepatitis A IgM Nonreactive Nonreactive [facility] Comment:IgM antibodies to [place] V not detected; does not exclude earlyacute or recovered HAV infection. ~Hepatitis B Surface Antibody REACTIVE Nonreactive [facility] Comment:REACTIVE: > 11.99 mI U/mL Hepatitis B Core Antibody Nonreactive Nonreactive [facility] Hepatitis C Antibody Nonreactive Nonreactive [facility] Comment:Antibodies to HCV no t detected; does not exclude early acuteHCV infection. Hepatitis B Surface Ag Negative Negative [facility] 04/10/2023 8:58 AM EST 04/10/2023 11:23 AM EST [facility] LAB BLOOD ORDERABLES Final Re sult [facility] [address] [place] [phone] * HIV-1/2 Antigen and Antibodies, Fourth Generation, with Reflexes (02/14/2022 8:22 AM EST) [facility] HIV Antigen/Antibody, 4th Generation NON-REAC TIVE NON-REAC TIVE [facility] Comment: HIV-1 antigen and HIV-1/HIV-2 antibodies were not detected. There is no laboratory evidence of HIV infection. PLEASE NOTE: This information has been disclosed to you from records whose confidentiality may be protected by state law. If your state requires such protection, then the state law prohibits you from making any further disclosure of the information without the specific written consent of the person to whom it pertains, or as otherwise permitted by law. A general authorization for the release of medical or other information is NOT sufficient for this purpose. For additional information please refer to http://education.[employer]/faq/PRK053 (This link is being provided for informational/ educational purposes only.) The performance of this assay has not been clinically validated in patients less than 2 years old. Blood Venous blood specimen / Unknown 02/14/2022 8:22 AM EST 02/14/2022 8:22 AM EST Narrative [facility] - 02/20/2022 1:29 PM EST FASTING:YES FASTING: YES [facility] [employer] LAB BLOOD ORDERABLES Final Re sult [facility] [address] [facility], [place] [phone] [facility] [address], ([address]) [place] [address] * Colonoscopy (07/21/2018 11:16 AM EDT) Anatomical Region Laterality Modality Endoscopy Historical Provider ENDOSCOPY PROCEDURE ORDER FRANCI Final Result from Last 3 Months or Most Recently Relevant to Health Maintenance Additional Health Concerns Active Problems Noted Date [...] 02/04/2025 Patient has chronic kidney disease 02/04/2025 Insurance [employer] [facility] MEDICAID LIMITED ADULT DENTAL - [facility] FULL (MEDICAID) Care Teams Feed Adviser Relationship Specialty Start Date End Date Lisa Todd, [employer] [address] [place] [address] PCP - General Family Medicine 10/24/21
--- OUTSIDE RECORDS SUMMARY | 2025-02-10 16:02 | XMS_ITS | Encounter Summary ---
Author Organization [employer] Address [address] [place] [address] [address] [place] [address] Care Team Providers Care Endless Belt Finisher Name Role Phone Lisa Todd [facility] Primary Care Provider [phone] Encounter Details Date Type Department Care Team (Late st Contact Info) Description 01/23/2022 Abstract [facility] ADULT DENTAL [address] [place] [address] Dental, Provider, DDS Social History Tobacco Use [...] Description 03/09/2025 9:30 AM EST Office Visit [facility] OPTOMETRY [address] [place] [address] Lorraine Sterling, OD [address] [place] [address] 03/16/2025 10:15 AM EST Office Visit [facility] MEDICINE [address] [place] [address] Lisa Todd, [facility] [address] [place] [address] documented as of this encounter Procedures Procedure Name Priority Date/Time Associated Diagnosis Comments 4 M COMPOSITE FILLING Routine 01/23/2022 12:00 AM EST 5 EXTRACTION Routine 01/23/2022 12:00 AM EST 3 EXTRACTION Routine 01/23/2022 12:00 AM EST documented in this encounter Visit Diagnoses Not on filedocumented in this encounter Care Teams Endless Belt Finisher Relationship Specialty Start Date End Date Lisa Todd FNP [address] [place] [phone] PCP - General Family Medicine 10/24/21 documented as of this encounter
== END 2025-02-10 12:12 | disposition home or self-care (01) ==
LOC: HO.HHCL 12:11
PROVIDERS: PCP Registered Nurse; Visit Provider Nurse Practitioner Family
DX: E11.69 Type 2 diabetes mellitus with other specified complication (principal); E66.9 Obesity, unspecified; R17 Unspecified jaundice
CPT/HCPCS: 36415; 80053; 80061; 82043; 82570